=== PATIENT | female | born 1970 | race Caucasian/White ===

== ENCOUNTER 2017-12-18 14:51 | Emergency (ER) | payer SELFPAY ==
[~2017-12-18] VITALS: Ht 167.6 cm; Wt 68.0 kg
[2017-12-18 14:54] VITALS: BP 121/70; PULSE 96; RESP 18; TEMP 99.1; O2SAT 100
[2017-12-18] MEDS ORDERED: TRAZ300T2 PO (16:34)
[2017-12-18] MEDS ORDERED: VENL100T PO (16:34)
--- NOTE | 2017-12-18 17:04 | PD ---
HPI Chief Complaint: GI Complaint Time Seen by Provider: 16:32 Travel History International Travel<30 days: No Contact w/Intl Traveler<30days: No Traveled to known affect area: No History of Present Illness HPI 47-year-old female patient presents to the ER today, states that she has been constipated for a long time, does not remember when her last bowel movement was , has been having some nausea, but denies any vomiting. She states that she gets abdominal cramping pains in multiple areas of her abdomen at times. She states that she just keeps pushing and cannot get her stool bolus out. She states that she has used multiple laxatives. Modifying Factors: None Associated Signs & Symptoms: Constipation Risk Factors: None PFSH Past Medical History Anxiety: Yes Diminished Hearing: No Insomnia: Yes Psychiatric: Yes (ptsd) ?: Not LMP: 11/19/17 : 1 Para: 1 Past Surgical History Other Surgery: Yes (sinus surgery) Social History Alcohol Use: No Tobacco Use: No Substance Use: No Allergies-Medications (Allergen,Severity, Reaction): Coded Allergies: codeine (Verified Allergy, Intermediate, HIVES, 12/18/17) Reported Meds & Prescriptions Reported Meds & Active Scripts Active Reported Effexor (Venlafaxine HCl) 100 Mg Tab 150 Mg PO DAILY Trazodone (Trazodone HCl) 300 Mg Tab 300 Mg PO HS Review of Systems Except as stated in HPI: all other systems reviewed are Neg Physical Exam Narrative GENERAL: Well-developed middle-aged female patient currently and mild distress. Awake and oriented 3. SKIN: Focused skin assessment warm/dry. HEAD: Atraumatic. Normocephalic. EYES: Pupils equal and round. No scleral icterus. No injection or drainage. ENT: No nasal bleeding or discharge. Mucous membranes pink and moist. NECK: Trachea midline. No JVD. CARDIOVASCULAR: Regular rate and rhythm. No murmur appreciated. RESPIRATORY: No accessory muscle use. Clear to auscultation. Breath sounds equal bilaterally. GASTROINTESTINAL: Abdomen soft, non-tender, nondistended. Hepatic and splenic margins not palpable. RECTAL EXAM: No masses or tenderness, there is a large stool bolus within the rectum, stool is brown. MUSCULOSKELETAL: No obvious deformities. No clubbing. No cyanosis. No edema. NEUROLOGICAL: Awake and alert. No obvious cranial nerve deficits. Motor grossly within normal limits. Normal speech. PSYCHIATRIC: Appropriate mood and affect; insight and judgment normal. Data Data Last Documented VS Vital Signs Date Time Temp Pulse Resp B/P (MAP) Pulse Ox O2 Delivery O2 Flow Rate FiO2 12/18/17 14:54 99.1 96 18 121/70 (87) 100 Room Air Orders Orders Abdomen, Flat & Upright (12/18/17 16:32) Ed Discharge Order (12/18/17 17:37) MDM Medical Decision Making Medical Screen Exam Complete: Yes Emergency Medical Condition: Yes Medical Record Reviewed: Yes Differential Diagnosis Constipation versus obstruction Narrative Course X-ray shows constipation with no signs of obstruction. At this point, my plan would be to release her with treatment for constipation. Patient states that she has had a increase in her psychiatric medications recently, thinks it may be causing the constipation. She denies any pain medication use. Her abdomen is fairly benign and not suspecting acute intra-abdominal process. She has not been vomiting. My plan would be to release her with [facility]. She should return for any worsening in pain, vomiting, and as needed. The plan has been discussed with her and she states understanding. Diagnosis Primary Impression: Constipation Med/Other Pt SpecificInfo: Prescription(s) given Scripts Peg-Electrolytes (Golytely 236 gm) 4,000 Ml Soln 2000 ML PO ONCE for Bowel Cleanser, #1 CONTAINER 0 Refills Prov: Colby Richard MD 12/18/17 Disposition: 01 DISCHARGE HOME Condition: Stable Colby Richard MD Dec 18, 2017 17:04
--- NOTE | 2017-12-18 17:15 | RADRPT ---
EXAM DATE/TIME: 12/18/2017 16:53 [facility] COMPARISON: No previous studies available for comparison. INDICATIONS : Constipation. MEDICAL HISTORY : None. SURGICAL HISTORY : None. ENCOUNTER: Initial ACUITY: 1 day PAIN SCORE: 8/10 LOCATION: Right abdomen. FINDINGS: There is abundant formed stool in the rectum and distal colon. There is mild gaseous distention of th e proximal colon. No small bowel dilatation is appreciated. There are no suspicious calcific densitie s. Regional skeleton is grossly intact. CONCLUSION: Constipation Osmin Melendrez MD on December 18, 2017 at 17:11 Board Certified Radiologist. This report was verified electronically.
[2017-12-18] MEDS ORDERED: COLY4000S PO (17:39)
== END 2017-12-18 18:10 | disposition home or self-care (01) ==
LOC: EDSEX 14:51 → NEPC 14:51
DX: K59.00 Constipation, unspecified (principal); F43.10 Post-traumatic stress disorder, unspecified; G47.00 Insomnia, unspecified
CPT/HCPCS: 74019; 99283